=== PATIENT | male | born 1945 | race Caucasian/White ===

== ENCOUNTER 2018-10-23 00:10 | Emergency (ER) | payer MEDICARE, BC, OTHER ==
[2018-10-23] MEDS: DIPHTH/TET/ACEL PERTUSS (ADULT) 0.5 ML VIAL IM* (00:38)
== END 2018-10-23 02:33 | disposition home or self-care (01) ==
LOC: E/R 00:10
DX: S01.01XA Laceration without foreign body of scalp, initial encounter (principal); I10 Essential (primary) hypertension; W01.198A Fall on same level from slipping, tripping and stumbling with subsequent striking against other object, initial encounter; Y92.9 Unspecified place or not applicable; Z23 Encounter for immunization; R51 Headache
CPT/HCPCS: 12002; 70450; 90471; 90715; 99284-25

== ENCOUNTER 2018-11-03 11:30 | Emergency (ER) | payer MEDICARE, BC | END 2018-11-03 12:25 | disposition home or self-care (01) | LOC: FTE 11:30 | DX: Z48.02 Encounter for removal of sutures (principal) | CPT/HCPCS: 99281 ==